=== PATIENT | female | born 1955 | race Caucasian/White ===

== ENCOUNTER → 2016-12-26 | Outpatient (CLI) | payer BC ==
[~2016-12-26] MED LIST: AMLO5TAB2 GT; LISI1TAB PO; MTF500T PO
--- NOTE | 2016-12-26 11:44 | Diagnostic Imaging Report ---
EXAM: Bilateral screening mammogram The current study was also evaluated with a Computer Aided Detection (CAD) system. INDICATION: Screening. No current complaints stated on the questionnaire. COMPARISON: 12/04/2015. FINDINGS: The breasts are composed of scattered fibroglandular densities. There are occasional benign-appearing calcifications. Allowing for technique and positional differences, no suspicious change is seen. IMPRESSION: No significant change. ACR BI-RADS Category 2: Benign findings. Result letter will be mailed to the patient. Note: At least 10% of breast cancer is not imaged by mammography. Dictated by: Dictated on workstation # [id number]
== END ==
LOC: RAD 07:19
PROVIDERS: ATTEND Nurse Practitioner
DX: Z12.31 Encounter for screening mammogram for malignant neoplasm of breast (principal)
CPT/HCPCS: 77067

== ENCOUNTER → 2016-12-26 | Outpatient (CLI) | payer BC | LOC: CARD 09:19 | PROVIDERS: ATTEND Nurse Practitioner | DX: I49.9 Cardiac arrhythmia, unspecified (principal) | CPT/HCPCS: 93005 ==

== ENCOUNTER → 2017-12-28 | Outpatient (CLI) | payer BC ==
--- NOTE | 2017-12-28 11:38 | Diagnostic Imaging Report ---
INDICATION: Routine screening. Comparison is made with prior exam from 12/26/2016 and 12/04/2015. The current study was also evaluated with a Computer Aided Detection (CAD) system. Mild parenchymal density is noted bilaterally. The parenchymal pattern is stable. No dominant mass or malignant appearing microcalcifications are seen. There are benign calcifications bilaterally. The axillae are unremarkable. Impression: BI-RADS category 2 No mammographic features suspicious for malignancy are identified. ACR BI-RADS Category 2: Benign findings. Result letter will be mailed to the patient. Note: At least 10% of breast cancer is not imaged by mammography. Dictated by: Dictated on workstation # [id number]
== END ==
LOC: RAD 10:14
PROVIDERS: ATTEND Family Medicine
DX: Z12.31 Encounter for screening mammogram for malignant neoplasm of breast (principal)
CPT/HCPCS: 77067

== ENCOUNTER → 2019-01-14 | Outpatient (CLI) | payer BC ==
--- NOTE | 2019-01-14 12:57 | Diagnostic Imaging Report ---
INDICATION: Routine screening. COMPARISON: 12/28/2017 and 12/26/2016. TECHNIQUE: 2D and 3D bilateral screening mammography was performed with CAD. FINDINGS: Scattered fibroglandular densities are identified bilaterally. The parenchymal pattern is stable. Benign calcifications in the left breast appear stable. No mass or malignant appearing microcalcifications are seen. The axillae are unremarkable. IMPRESSION: No mammographic features suspicious for malignancy are identified. ACR BI-RADS Category 2: Benign findings. Result letter will be mailed to the patient. Note: At least 10% of breast cancer is not imaged by mammography. Dictated by: Dictated on workstation # [id number]
== END ==
LOC: RAD 09:24
PROVIDERS: ATTEND Family Medicine
DX: Z12.31 Encounter for screening mammogram for malignant neoplasm of breast (principal)
CPT/HCPCS: 77067

== ENCOUNTER → 2020-03-09 | Outpatient (CLI) | payer BC ==
--- NOTE | 2020-03-09 16:30 | Diagnostic Imaging Report ---
INDICATION: Routine screening. COMPARISON: Prior mammogram from 01/14/2019 and 12/28/2017. EXAMINATION: 2D and 3D bilateral screening mammography was performed with CAD. The current study was also evaluated with a Computer Aided Detection (CAD) system. FINDINGS: Scattered fibroglandular densities are identified, bilaterally. A circumscribed nodule in the retroareolar left breast is stable. There are benign calcifications in both breasts. No new mass or malignant appearing microcalcifications are identified. Axillae are unremarkable. IMPRESSION: No mammographic features suspicious for malignancy are identified. ACR BI-RADS Category 2: Benign findings. Result letter will be mailed to the patient. Note: At least 10% of breast cancer is not imaged by mammography. Dictated on workstation # [id number]
== END ==
LOC: RAD 08:22
PROVIDERS: ATTEND Nurse Practitioner Family
DX: Z12.31 Encounter for screening mammogram for malignant neoplasm of breast (principal)
CPT/HCPCS: 77063; 77067

== ENCOUNTER → 2020-06-25 | Outpatient (CLI) | payer BC ==
--- NOTE | 2020-06-25 10:19 | Diagnostic Imaging Report ---
PROCEDURE: US Renal Bilateral. TECHNIQUE: Multiple Real-time grayscale images were obtained over the kidneys in various projections bilaterally. INDICATION: Acute kidney failure. FINDINGS: The right kidney measures 9.7 x 5.4 x 5.5 cm and the left kidney measures 9.7 x 5.2 x 5.1 cm. The cortical thickness and echogenicity are normal. There is a cyst in the upper pole of the left kidney measuring approximately 12 mm in size. An echogenic focus in the renal cortex of the mid left kidney is also noted measuring approximately 13 mm in size. No hydronephrosis is identified. The urinary bladder demonstrates a right ureteral jet. A left ureteral jet was not visualized. IMPRESSION: 1. No evidence of hydronephrosis. 2. Small left renal cyst and left renal cortical calcification. Dictated by: Dictated on workstation # [id number]
== END ==
LOC: RAD 08:58
PROVIDERS: ATTEND Family Medicine
DX: N17.9 Acute kidney failure, unspecified (principal); N28.1 Cyst of kidney, acquired
CPT/HCPCS: 76770

== ENCOUNTER → 2021-05-03 | Outpatient (CLI) | payer BC, MEDICARE ==
--- NOTE | 2021-05-03 11:09 | Diagnostic Imaging Report ---
INDICATION: Routine screening. Comparison is made with prior mammogram from 03/09/2020 and 01/14/2019. 2-D and 3-D bilateral screening mammography was performed with CAD. Scattered fibroglandular densities are identified bilaterally. A circumscribed nodule retroareolar left breast is again noted and stable. There are benign calcifications bilaterally. No mass or malignant appearing microcalcifications are seen. Axillae are unremarkable. IMPRESSION: BI-RADS Category 2 No mammographic features suspicious for malignancy are identified. ACR BI-RADS Category 2: Benign findings. Result letter will be mailed to the patient. Note: At least 10% of breast cancer is not imaged by mammography. Dictated by: Dictated on workstation # [id number]
== END ==
LOC: RAD 08:30
PROVIDERS: ATTEND Family Medicine
DX: Z12.31 Encounter for screening mammogram for malignant neoplasm of breast (principal)
CPT/HCPCS: 77063; 77067

== ENCOUNTER → 2021-08-29 | Outpatient (CLI) | payer BC, MEDICARE | LOC: CARD 09:21 | PROVIDERS: ATTEND Family Medicine | DX: I49.9 Cardiac arrhythmia, unspecified (principal) | CPT/HCPCS: 93005 ==

== ENCOUNTER → 2021-09-12 | Outpatient (CLI) | payer BC, MEDICARE ==
[~2021-09-12] VITALS: Ht 167 cm; Wt 109.0 kg
[~2021-09-12] MED LIST changes: +CATHETER FLUSH 10 ML SYR IV PRN
[2021-09-12 09:32] VITALS: BP 162/89
--- NOTE | 2021-09-12 12:40 | NUCLEAR STRESS TEST ---
TREADMILL NUCLEAR STRESS TEST Date of procedure: 09/12/2021. Primary care provider: Xochilt Madison DO. Admitting physician: Doron Rust Jr., MD. INDICATION: Paroxysmal atrial fibrillation. BASELINE ELECTROCARDIOGRAM: Sinus rhythm with diffuse, nonspecific ST-T wave changes. STRESS TEST PROCEDURE: The patient was exercised for a total of 2 minutes and 22 seconds of the standard Shine protocol achieving a maximum MET level of 3.8. The resting heart rate was 90 bpm and the peak heart rate was 144 bpm, which represents 92% of the maximum predicted heart rate. The resting blood pressure was 157/76 mmHg and the peak blood pressure was 193/90 mmHg. This represents a normal heart rate and a normal blood pressure response to exercise. The test was stopped due to fatigue. There was no chest discomfort during the test. There were isolated premature ventricular complexes in recovery. The stress electrocardiogram was indeterminate due to the baseline abnormalities. The patient exhibited fair exercise capacity for age. NUCLEAR PROCEDURE: The patient was administered 10.1 mCi of intravenous technetium 99m Tetrofosmin at rest for the rest images. The patient was subsequently administered 30.9 mCi of intravenous technetium 99 M Tetrofosmin at peak stress for the stress images. Following an appropriate wait after each injection, imaging was obtained. The images were subsequently processed and reformatted in the usual views. Gated imaging was obtained. The image quality was adequate but with gastrointestinal and breast attenuation artifacts. CT attenuation correction was used as a adjunct to standard imaging. Both the corrected and uncorrected images were reviewed for interpretation. NUCLEAR RESULTS: There was a small, moderate intensity, reversible apical defect with a small amount of inducible ischemia with a summed stress score of 3 and a summed difference score of 3. There was normal left ventricular chamber size with an end-diastolic volume of 97 mL and an end-systolic volume of 42 mL. There was no evidence of transient ischemic dilatation. The TID ratio was 0.94. There was normal wall motion in all segments with a calculated ejection fraction of 56%. IMPRESSION: 1. Normal heart rate and blood pressure response to exercise. 2. There was no chest discomfort during the test. 3. There were isolated premature ventricular complexes during recovery. 4. The stress electrocardiogram was indeterminate due to the baseline abnormalities. 5. The patient exhibited fair exercise capacity for age at 2 minutes and 22 seconds of the Shine protocol. 6. There was a small, moderate intensity, reversible apical defect with a small amount of inducible ischemia with a summed stress score of 3 and a summed difference score of 3. 7. There was normal wall motion in all segments with a calculated ejection fraction of 56%. Certain portions of this document may have been dictated utilizing voice recognition technology. Inherent to this technology, typographical and grammatical errors may exist. As much as I am diligent to identify and correct these mistakes, some errors may remain in the document. DORON RUST JR, MD Sep 12, 2021 12:40
== END ==
LOC: CARD 07:45
PROVIDERS: ATTEND Internal Medicine Cardiovascular Disease
DX: I48.0 Paroxysmal atrial fibrillation (principal)
CPT/HCPCS: 78452; 93017; A9502

== ENCOUNTER → 2021-09-13 | Outpatient (CLI) | payer BC, MEDICARE ==
[~2021-09-13] MED LIST changes: -CATHETER FLUSH 10 ML SYR IV PRN
== END ==
LOC: CARD 08:46
PROVIDERS: ATTEND Internal Medicine Cardiovascular Disease
DX: I34.0 Nonrheumatic mitral (valve) insufficiency (principal); I51.7 Cardiomegaly; I48.0 Paroxysmal atrial fibrillation
CPT/HCPCS: 93306

== ENCOUNTER 2021-10-31 08:00 | Day surgery (SDC) | payer BC, MEDICARE ==
[2021-10-31] VITALS (11 sets, daily range): BP systolic 111–167; BP diastolic 59–97
[~2021-10-31] VITALS: Ht 167.6 cm; Wt 112.0 kg
[2021-10-31] MEDS ORDERED: LIDOCAINE 1% INJ 20 ML 20 ML VIAL ONE (08:23)
[2021-10-31] MEDS ORDERED: HEParin (CATH LAB) 2,000 ML IV ONE (08:23)
[2021-10-31] MEDS ORDERED: NS IV 1000 ML 1,000 ML IV ONE (08:30)
[2021-10-31] MEDS ORDERED: ASPIRIN 81 MG CHEW (CHILDREN'S ASA) PO ONE (08:30)
[2021-10-31] MEDS ORDERED: CATHETER FLUSH 10 ML SYR IV PRN (08:30)
[2021-10-31] MEDS ORDERED: MTP25TSR PO (08:43)
[2021-10-31] MEDS ORDERED: APIX5TAB PO (08:43)
[2021-10-31] MEDS ORDERED: ATOR20TA66 PO (08:43)
[2021-10-31] MEDS ORDERED: DILT120C88 PO (08:43)
[2021-10-31] MEDS ORDERED: AMLO-250 PO (08:43)
[2021-10-31] MEDS ORDERED: CALC-1038 PO (08:43)
[2021-10-31] MEDS ORDERED: VERAPAMIL 5 MG/2 ML (CALAN) VIAL IV ONE (08:46)
[2021-10-31] MEDS ORDERED: fentaNYL INJ 100 MCG/2 ML AMP ONE (08:47)
[2021-10-31] MEDS ORDERED: ASPIRIN 81 MG CHEW (CHILDREN'S ASA) ONE (08:47)
[2021-10-31] MEDS ORDERED: HEParin 1000 UNIT/ML (10ML VIAL) FOR BOLUS ONE (08:47)
[2021-10-31] MEDS ORDERED: NITRO DRIP 25000 MCG/D5W 250 ML IV ONE (08:47)
[2021-10-31] MEDS ORDERED: MIDAZOLAM 5 MG/5 ML (VERSED) VIAL ONE (08:47)
--- NOTE | 2021-10-31 09:15 | Consultation-Cardiology ---
HPI-Cardiology Cardiology Consultation: Date of Consultation This is a history and physical for outpatient cardiac catheterization. 10/31/2021 Date of Admission 10/31/2021 Attending Physician Wing Rust Jr, MD Admitting Physician Xochilt Madison DO Consulting Physician WING RUST JR, MD HPI: Time Seen by a Provider: 09:10 Chief Complaint: Abnormal nuclear stress test and paroxysmal atrial fibrillation here for cardiac catheterization. I had the pleasure of seeing Carolina in the cardiac catheterization laboratory at [facility] in [place], [place] this morning. She has a history of recently diagnosed paroxysmal atrial fibrillation. She underwent noninvasive cardiac testing including an echocardiogram, nuclear stress test and 30-day event recorder. The nuclear stress test showed a small perfusion defect in the apex. In order to determine the most appropriate antiarrhythmic drug for the patient, she is here today for a cardiac catheterization to definitively rule in or rule out coronary artery disease in light of the abnormal stress test. She does still get some occasional intermittent palpitations with the sensation of a fluttering in her chest. She feels as though this could be brief episodes of atrial fibrillation. She denies associated complaints. She denies chest discomfort, dyspnea, paroxysmal nocturnal dyspnea, orthopnea, palpitations, lightheadedness, syncope, or ankle edema. She has been taking Xarelto but not with the biggest meal of the day. Her last dose of Xarelto was this morning. Certain portions of this document may have been dictated utilizing voice recognition technology. Inherent to this technology, typographical and grammatical errors may exist. As much as I am diligent to identify and correct these mistakes, some errors may remain in the document. Review of Systems-Cardiology Review of Systems Other comments Review of 10 organ systems is as per the history of present illness, otherwise negative. [id number] Hx Patient Social History Marrital Status: Past Medical History PMH As described under Assessment. Family Medical History Family Medical History: The patient does not know of any family history of premature coronary artery disease in first-degree relatives. Allergies and Home Medications Allergies Coded Allergies: No Known Drug Allergies (Unverified , 05/09/13) Patient Home Medication List Home Medication List Reviewed: Yes Amlodipine Besylate (Amlodipine Besylate) 5 Mg Tablet, 5 MG PO DAILY, (Reported) Entered as Reported by: LLOYD CISNEROS on 10/31/21842 Last Action: Reviewed Apixaban (Eliquis) 5 Mg Tablet, 5 MG PO BID, (Reported) Entered as Reported by: LLOYD CISNEROS on 10/31/21842 Last Action: Reviewed Atorvastatin Calcium (Atorvastatin Calcium) 20 Mg Tablet, 20 MG PO DAILY, (Reported) Entered as Reported by: LLOYD CISNEROS on 10/31/21842 Last Action: Reviewed Calcium Carbonate/Vitamin D3 (Calcium 500 mg-Vit D3 600 Unit) 1 Each Tablet, 1 EACH PO DAILY, (Reported) Entered as Reported by: LLOYD CISNEROS on 10/31/21842 Last Action: Reviewed Diltiazem HCl (Diltiazem 24Hr Cd) 120 Mg Cap.er.24h, 120 MG PO DAILY, (Reported) Entered as Reported by: LLOYD CISNEROS on 10/31/21842 Last Action: Reviewed Metformin Hcl (Metformin 500 Mg) 500 Mg Tablet, 500 MG PO DAILY, (Reported) Entered as Reported by: RADHA COTO on 05/05/131433 Last Action: Reviewed Metoprolol Succinate (Metoprolol Succinate) 25 Mg Tab.er.24h, 25 MG PO DAILY, (Reported) Entered as Reported by: LLOYD CISNEROS on 10/31/21842 Last Action: Reviewed Discontinued Medications Hctz/Lisinopril (Lisinopril-Hctz 20-12.5 Mg Tab) 1 Each Tablet, 2 EACH PO DAILY, (Reported) Discontinued Reason: No Longer Taking Entered as Reported by: RADHA COTO on 05/05/131433 Last Action: Discontinued Exam Vital Signs Vital Signs Date Time Temp Pulse Resp B/P (MAP) Pulse Ox O2 Delivery O2 Flow Rate FiO2 10/31/21 08:36 37.0 84 16 167/97 (120) 96 Room Air Physical Exam General: Alert. No acute distress. Well nourished and appears stated age. She is morbidly obese. Eye: Extraocular movements are intact. Conjunctivae are clear. There are no xanthelasma. HENT: Normocephalic. Atraumatic. Carotid pulsations 2/2 without bruits. Neck: Jugular venous pressure does not appear elevated. No thyromegaly appreciated. Respiratory: Lungs are clear to auscultation. Respirations are non-labored. Breath sounds are equal. Symmetrical chest wall expansion. Cardiovascular: Normal rate. Regular rhythm. No murmur. No gallop. Point of maximal impulse is not appear displaced. Good pulses equal in all extremities. No edema. Gastrointestinal: Soft. Normal bowel sounds. Skin: Skin turgor is normal. There is no pallor. Musculoskeletal: No kyphosis or scoliosis appreciated. Neurologic: Alert and oriented to person, place, time. Cranial nerves 3-12 appear grossly intact. The patient has good motor tone strength in the upper and lower extremities bilaterally. Psychiatric: Cooperative. Appropriate mood & affect. Diagnosis/Problems Diagnosis/Problems (1) Abnormal nuclear stress test Assessment & Plan: As above, in light of the abnormal stress test, I will have her undergo further evaluation with a cardiac catheterization. The benefits and risks of the procedure were explained to the patient and she and and her family are in agreement to proceed. (2) Paroxysmal atrial fibrillation Assessment & Plan: She will continue on rivaroxaban for stroke prophylaxis and diltiazem for rate control. I did inform the patient that she needs to take the rivaroxaban with the biggest meal of the day. (3) Primary hypertension Assessment & Plan: We will continue the present outpatient antihypertensive medication. (4) Mixed hyperlipidemia Assessment & Plan: Continue atorvastatin. (5) Type 2 diabetes mellitus with complication Assessment & Plan: Metformin is on hold for the procedure and should not be resumed until Thursday. (6) Morbid obesity Assessment & Plan: She needs to work on weight loss. WING RUST JR, MD Oct 31, 2021 09:15
--- NOTE | 2021-10-31 09:16 | Pre-Op Note & Conscious Sedat ---
Pre-Operative Progress Note H&P Reviewed The H&P was reviewed, patient examined and no changes noted. Date H&P Reviewed: Oct 31, 2021 Time H&P Reviewed: 09:15 Pre-Op Diagnosis: Paroxysmal atrial fibrillation and abnormal stress test Conscious Sedation Pre-Proced ASA Score 2 For ASA 3 and 4: Consider anesthesia and medical clearance. Also, for patients with a history of failed moderate sedation consider anesthesia. Airway Lungs Heart ASA score ASA 1: a normal healthy patient ASA 2: a patient with a mild systemic disease (mid diabetes, controlled hype rtension, obesity ASA 3: a patient with a severe systemic disease that limits activity (angina, COPD, prior Myocardial infarction) ASA 4: a patient with an incapacitating disease that is a constant threat to life (CHF, renal failure) ASA 5: a moribund patient not expected to survive 24 hrs. (ruptured aneurysm) ASA 6: a declared brain- patient whose organs are being harvested. For emergent operations, add the letter E after the classification Mallampati Classification Grade 3 Sedation Plan Analgesia, Amnesia, Plan communicated to team members, Discussed options with patient/fam, Discussed risks with patient/fam The patient is an appropriate candidate to undergo the planned procedure, taiwo tion, and anesthesia. The patient immediately re-assessed prior to indication. WING DODGE JR, MD Oct 31, 2021 09:16
--- NOTE | 2021-10-31 10:10 | Cardiac Cath Report ---
CARDIAC CATHETERIZATION DATE OF PROCEDURE: 10/31/2021 INDICATION: Abnormal nuclear stress test and paroxysmal atrial fibrillation. HISTORY: The patient is a 65 year old female with no previously known history of coronary artery disease. She has a recent onset of paroxysmal atrial fibrillation. I had her undergo a nuclear stress test for further evaluation. This showed a small apical perfusion defect. In order to help guide antiarrhythmic drug therapy, she is now referred for further evaluation with a cardiac catheterization in light of the abnormal nuclear stress test. PROCEDURES PERFORMED: 1. Left heart catheterization with hemodynamic measurements. 2. Diagnostic [place] coronary angiography. PROCEDURE DESCRIPTION: After informed consent and in the fasting state, left heart catheterization was performed through the right radial artery utilizing a 6 Portuguese system by percutaneous approach. Standard 5 Portuguese Jas catheters were utilized for the diagnostic portion of the procedure. A 5 Portuguese JL 3.5 was utilized to interrogate the left coronary artery. All catheters were exchanged over a guidewire. Following the procedure, a vascular band was applied to the radial artery access site and the sheath was removed with good hemostasis. RESULTS: HEMODYNAMICS: The aortic pressure was 136/75 mmHg. The left ventricular pressure was 139/0 mmHg with a left ventricular end-diastolic pressure of 16 mmHg. There was no significant pressure gradient upon pullback across the aortic valve. CORONARY ANGIOGRAPHY: Left main coronary artery: Short and free of significant disease. Left anterior descending coronary artery: There was a 50% stenosis in the ostium and a 30% stenosis in the proximal segment. Left circumflex coronary artery: Dominant and there was diffuse, mild disease at no more than 30% stenotic in the distal vessel proximal to the takeoff of the posterolateral branches and posterior descending branch. Right coronary artery: Small, nondominant and free of significant disease. IMPRESSION: 1. Mildly elevated left ventricular end-diastolic pressure. 2. Mild to moderate two-vessel coronary artery disease in a left dominant system with the most significant stenosis being a 50% stenosis in the ostium of the left anterior descending coronary artery as outlined above. 3. The patient is known to have normal left ventricular systolic function with a calculated ejection fraction of 56% by nuclear stress test that was performed on 09/12/2021. Certain portions of this document may have been dictated utilizing voice recognition technology. Inherent to this technology, typographical and grammatical errors may exist. As much as I am diligent to identify and correct these mistakes, some errors may remain in the document. WING DODGE JR, MD Oct 31, 2021 10:10
[2021-10-31] MEDS ORDERED: NS IV 1000 ML 1,000 ML IV SCH (10:15)
[2021-10-31] MEDS ORDERED: PATIENT MAY USE OWN MEDS, ALL PO SCH (10:15)
== END 2021-10-31 14:10 ==
LOC: CATH 08:00 → SDC 10:19 → CATH 14:10
PROVIDERS: ATTEND Internal Medicine Cardiovascular Disease
DX: I25.10 Atherosclerotic heart disease of native coronary artery without angina pectoris (principal); I48.0 Paroxysmal atrial fibrillation; I10 Essential (primary) hypertension; E66.01 Morbid (severe) obesity due to excess calories; E78.2 Mixed hyperlipidemia; E11.8 Type 2 diabetes mellitus with unspecified complications; Z79.01 Long term (current) use of anticoagulants; Z79.899 Other long term (current) drug therapy; Z79.84 Long term (current) use of oral hypoglycemic drugs; Z68.39 Body mass index [BMI] 39.0-39.9, adult
CPT/HCPCS: 93458; C1894

== ENCOUNTER 2022-05-22 07:50 | Day surgery (SDC) | payer BC, MEDICARE ==
[~2022-05-22] VITALS: Ht 167.6 cm; Wt 118.8 kg
[2022-05-22] VITALS (9 sets, daily range): BP systolic 101–142; BP diastolic 55–109
[~2022-05-22 07:50] MED LIST changes: +AMLO-250 PO; +APIX5TAB PO; +ATOR20TA66 PO; +CALC-1038 PO; +DILT120C88 PO; +MTP25TSR PO
[2022-05-22] MEDS ORDERED: NS IV 1000 ML 1,000 ML ONE (07:55)
[2022-05-22] MEDS ORDERED: LIDOCAINE 2% VISCOUS 15 ML UDC ONE (07:56)
[2022-05-22] MEDS ORDERED: NS IV 1000 ML 1,000 ML IV ONE (08:00)
[2022-05-22] MEDS ORDERED: NS IV 1000 ML 1,000 ML IV SCH (08:00)
[2022-05-22] MEDS ORDERED: MTP100TCR PO (08:34)
[2022-05-22] MEDS ORDERED: OMG1KC PO (08:34)
[2022-05-22] MEDS ORDERED: POTA-51 PO (08:34)
[2022-05-22] MEDS ORDERED: DILT360C36 PO (08:34)
[2022-05-22] MEDS ORDERED: FURO-124 PO (08:34)
[2022-05-22] MEDS ORDERED: SOTA80TA62 PO (08:34)
[2022-05-22] MEDS ORDERED: proPOfol 200 MG/20 ML (DIPRIVAN) VIAL IV ONE (08:43)
--- NOTE | 2022-05-22 09:08 | Cardiac Procedure Note-[facility] ---
Cardiology Procedures Date of Procedure 05/22/22 DIRECT-CURRENT CARDIOVERSION INDICATION: Persistent atrial fibrillation. PROCEDURE: After informed consent and in the fasting state, deep sedation was provided by the anesthesia department. I subsequently performed direct-current cardioversion with 1 synchronized biphasic shock at 120 J with conversion of atrial fibrillation to sinus rhythm. IMPRESSION: 1. Status post successful direct-current cardioversion with 1 synchronized biphasic shock at 120 J with conversion of atrial fibrillation to sinus rhythm. Certain portions of this document may have been dictated utilizing voice recognition technology. Inherent to this technology, typographical and grammatical errors may exist. As much as I am diligent to identify and correct these mistakes, some errors may remain in the document. WING DODGE JR, MD May 22, 2022 09:08
--- NOTE | 2022-05-22 09:31 | Anesthesia-General Post-Op ---
MAC Patient Condition Mental Status/LOC: Same as Preop Cardiovascular: Satisfactory Nausea/Vomiting: Absent Respiratory: Satisfactory Pain: Controlled Complications: Absent Post Op Complications Complications None Follow Up Care/Instructions Patient Instructions None needed. Anesthesiology Discharge Order Discharge Order Patient is doing well, no complaints, stable vital signs, no apparent adverse anesthesia problems. No complications reported per nursing. ALESSANDRO SPARKS CRNA May 22, 2022 09:31
== END 2022-05-22 09:55 ==
LOC: CATH 07:50
PROVIDERS: ATTEND Internal Medicine Cardiovascular Disease
DX: I48.19 Other persistent atrial fibrillation (principal)
CPT/HCPCS: 92960; 93005

== ENCOUNTER → 2022-10-17 | Outpatient (CLI) | payer BC, MEDICARE ==
[~2022-10-17] MED LIST changes: +DILT360C36 PO; +FURO-124 PO; +MTP100TCR PO; +OMG1KC PO; +POTA-51 PO; +SOTA80TA62 PO
--- NOTE | 2022-10-17 11:51 | Diagnostic Imaging Report ---
Indication: Routine screening. Comparison is made with prior mammograms 05/03/2021 and 03/09/2020. 2-D and 3-D bilateral screening mammography was performed with CAD. Scattered fibroglandular densities are identified bilaterally. A benign-appearing nodule retroareolar left breast is stable. There are scattered benign calcifications bilaterally. No spiculated mass or malignant-appearing microcalcifications are seen. Axillae are unremarkable. IMPRESSION: BI-RADS Category 2 No mammographic features suspicious for malignancy are identified. ACR BI-RADS Category 2: Benign findings. Result letter will be mailed to the patient. Note: At least 10% of breast cancer is not imaged by mammography. Dictated by: Dictated on workstation # [id number]
== END ==
LOC: RAD 07:40
PROVIDERS: ATTEND Family Medicine
DX: Z12.31 Encounter for screening mammogram for malignant neoplasm of breast (principal)
CPT/HCPCS: 77063; 77067

== ENCOUNTER → 2023-07-10 | Outpatient (CLI) | payer BC, MEDICARE ==
[~2023-07-10] MED LIST changes: +POTA-330 PO; -POTA-51 PO
--- NOTE | 2023-07-10 09:39 | Diagnostic Imaging Report ---
INDICATION: Shortness of breath, arrhythmia. PA and lateral chest Heart size and pulmonary vascularity are normal. Lungs are clear. There are no effusions or pneumothoraces. IMPRESSION: No acute abnormalities in the chest. Dictated by: Dictated on workstation # [id number]
== END ==
LOC: RAD 07:53
PROVIDERS: ATTEND Internal Medicine Interventional Cardiology
DX: I49.9 Cardiac arrhythmia, unspecified (principal); R06.09 Other forms of dyspnea; R06.02 Shortness of breath
CPT/HCPCS: 71046

== ENCOUNTER 2023-08-19 05:34 | Outpatient (CLI) | payer BC, MEDICARE ==
[~2023-08-19] VITALS: Ht 167.6 cm; Wt 109.8 kg
[2023-08-21] MEDS ORDERED: EMPA25TA PO (16:17)
[2023-08-21] MEDS ORDERED: DILT180C71 PO (16:17)
[2023-08-21] MEDS ORDERED: SPIR25TA5 PO (16:17)
== END 2023-08-21 16:23 | disposition home or self-care (01) ==
LOC: PREOP 05:34
PROVIDERS: ATTEND Internal Medicine
DX: Z01.818 Encounter for other preprocedural examination (principal)

== ENCOUNTER 2023-08-28 07:32 | Day surgery (SDC) | payer BC, MEDICARE ==
--- NOTE | 2023-08-13 18:40 | HISTORY AND PHYSICAL ---
DATE OF SERVICE: 08/28/2023 COLONOSCOPY HISTORY AND PHYSICAL HISTORY OF PRESENT ILLNESS: The patient is a 67-year-old white female referred by Dr. Madison for screening colonoscopy. She is deemed to be of average risk because she is not aware of any family history for colon cancer. She denies abdominal pain, change in bowel habits, bright red blood per rectum, melena or change in weight. PAST MEDICAL HISTORY: Significant for type 2 diabetes and overweight status, as well as hyperlipidemia, hypertension and atrial fibrillation for which she is on Eliquis. She has no known history of coronary artery disease. PAST SURGICAL HISTORY: Significant for an appendectomy as a child and 2 C-sections. FAMILY HISTORY: Mother still living at the age of 91 independently, does have a history of coronary artery disease. Father at the age of 81 of diabetic complications with renal failure requiring dialysis. 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 REVIEW OF SYSTEMS: CONSTITUTIONAL: Denies night sweats, chills, fever or change in weight. GASTROINTESTINAL: As noted in the HPI. PULMONARY: Denies cough, wheezing or shortness of breath. CARDIOVASCULAR: Denies chest pain, palpitations or syncope. PHYSICAL EXAMINATION: GENERAL: Reveals a pleasant white female, appeared to be in no acute distress. VITAL SIGNS: Weight 242 pounds, BMI 36, blood pressure 140/84. HEENT: Unremarkable. CHEST: Clear. CARDIOVASCULAR: Reveals regular rate and rhythm without murmur, S3, or S4. ABDOMEN: Soft, supple without mass, organomegaly, or tenderness. EXTREMITIES: Revealed no cyanosis, clubbing or edema. ASSESSMENT AND PLAN: 1. The patient is being set up for screening colonoscopy, deemed to be of average risk. Prep instructions were given and questions were answered. 2. Hypertension, under good control. 3. Type 2 diabetes, reportedly under good control as well. The patient was advised to hold Eliquis after Thursday night dose for Thursday morning endoscopy and will avoid nonsteroidal medications that she does not usually take and avoid aspirin that she does not usually take. I thank you for the referral of this pleasant lady. Job ID: [id number] DocumentID: [id number] Dictated Date: 08/03/2023 17:20:32 [employer]aker And Wire [employer]er Date: 08/03/2023 17:44:00 Dictated By: TORI SO MD
[~2023-08-28] VITALS: Ht 167.6 cm; Wt 109.8 kg
[~2023-08-28 07:32] MED LIST changes: +DILT180C71 PO; +EMPA25TA PO; +SPIR25TA5 PO
[2023-08-28] MEDS ORDERED: LACTATED RINGERS 1,000 ML 1,000 ML IV STA (07:42)
--- NOTE | 2023-08-28 07:54 | Pre-Op Note & Conscious Sedat ---
Pre-Operative Progress Note Date H&P Reviewed: Aug 28, 2023 Time H&P Reviewed: 07:53 History & Physical: H&P Reviewed, Patient Examed, No changes noted Pre-Op Diagnosis: screening Moderate Sedation PreProcedure ASA Score 2 Airway Lungs Heart ASA score ASA 1: a normal healthy patient ASA 2: a patient with a mild systemic disease (mid diabetes, controlled hypertension, obesity ASA 3: a patient with a severe systemic disease that limits activity (angina, COPD, prior Myocardial infarction) ASA 4: a patient with an incapacitating disease that is a constant threat to life (CHF, renal failure) ASA 5: a moribund patient not expected to survive 24 hrs. (ruptured aneurysm) ASA 6: a declared brain- patient whose organs are being harvested. For emergent operations, add the letter E after the classification Mallampati Classification Grade 2 Sedation Plan Analgesia, Amnesia, Plan communicated to team members, Discussed options with patient/fam, Discussed risks with patient/fam The patient is an appropriate candidate to undergo the planned procedure, sedation, and anesthesia. The patient immediately re-assessed prior to indication. TORI SO MD Aug 28, 2023 07:54
[2023-08-28 07:58] VITALS: BP 172/73
[2023-08-28 08:50] VITALS: BP 103/51
--- NOTE | 2023-08-28 08:55 | Progress Note-Post Operative ---
Post-Procedure Note Physician (s)/Administrative Assistant Data Entry (s) Physician TORI SO MD Pre-Procedure Diagnosis Pre-Procedure Diagnosis: screening Post-Procedure Diagnosis Post-operative diagnosis: Prior to undergoing colonoscopy digital rectal evaluation was performed. Anal suture tone was normal and the perianal reflexes intact. No abnormalities noted on [place] specks in anal canal or distal rectal vault. The colonoscope was inserted into the rectum and under direct visualization advanced to the cecum. The cecum was identified by an indication of the ileocecal valve and cecal strap as well as appendiceal orifice. Photographic documentation was obtained. A careful inspection was made as the colonoscope was withdrawn. Quality the prep was good. Findings there are no evidence for internal or external hemorrhoids and the rectum was unremarkable. Findings compatible with moderate diverticular disease confined to the sigmoid colon was present without evidence for diverticulitis. No other sigmoid colonic Mass appreciated. The descending colon splenic flexure transverse colon hepatic flexure ascending colon and cecum were unremarkable. A/P 1. Moderate diverticular disease confined sigmoid colon was present without evidence for diverticulitis. No other abnormalities noted on today's procedure. Considering age and medical comorbidities would not advocate future screening colonoscopy. CC: TORI Estrada MD Aug 28, 2023 08:55
[2023-08-28 09:00] VITALS: BP 103/51
[2023-08-28 09:40] VITALS: BP 103/51
--- NOTE | 2023-08-28 10:12 | Anesthesia-General Post-Op ---
MAC Patient Condition Mental Status/LOC: Same as Preop Cardiovascular: Satisfactory Nausea/Vomiting: Absent Respiratory: Satisfactory Pain: Controlled Complications: Absent Post Op Complications Complications None Follow Up Care/Instructions Patient Instructions None needed. Anesthesiology Discharge Order Discharge Order Patient is doing well, no complaints, stable vital signs, no apparent adverse anesthesia problems. No complications reported per nursing. JAZMIN MCPHERSON CRNA Aug 28, 2023 10:12
== END 2023-08-28 09:40 | disposition home or self-care (01) ==
LOC: ENDO 07:32
PROVIDERS: ATTEND Internal Medicine
DX: Z12.11 Encounter for screening for malignant neoplasm of colon (principal); K57.30 Diverticulosis of large intestine without perforation or abscess without bleeding; I10 Essential (primary) hypertension; E11.9 Type 2 diabetes mellitus without complications; I48.91 Unspecified atrial fibrillation; Z79.01 Long term (current) use of anticoagulants; Z79.84 Long term (current) use of oral hypoglycemic drugs